=== PATIENT | female | born 1990 | race Caucasian/White ===

== ENCOUNTER 2020-02-16 11:44 | Emergency (ER) | payer OTHER ==
[~2020-02-16] VITALS: Ht 175.3 cm; Wt 63.5 kg
[2020-02-16 11:51] VITALS: BP 106/50
--- NOTE | 2020-02-16 11:55 | NUR ---
PATIENT AMBULATED TO ER BED 03
--- NOTE | 2020-02-16 12:01 | NUR ---
29 y/o female A&OX4 c/o vomiting X 1day with pelvic cramping X2days 9/10 intermittitent. Denies vaginal bleeding. Pt states she was prescribed zofran for first trimester which helped but now no relief. States pt vomited yellow bile with some blood and was told to go to ER for further evaluation. Denies PMH, RX NKA
--- NOTE | 2020-02-16 12:31 | NUR ---
Pt instructed for UA specimen collection, refusing to drink water due to N/V.
--- NOTE | 2020-02-16 12:38 | NUR ---
Dr. Barton at bedside for U/S.
[2020-02-16] MEDS ORDERED: ONDANSETRON 4 MG/2 ML VIAL IVP ONE (12:50)
[2020-02-16] MEDS ORDERED: NACL 0.9% 1,000 ML IV SCH (12:50)
--- NOTE | 2020-02-16 13:00 | NUR ---
20G IV placed to left AC, blood drawn at this time and given to phleb
[2020-02-16 13:31] LABS: ANION GAP 12.5 (8-16); CARBON DIOXIDE 24.8 mmol/L (21-32); CREATININE 0.5 mg/dL (0.6-1.3); HEMATOCRIT 30.9 % (36-48); HEMOGLOBIN 10.7 g/dL (12.0-16.0); MEAN CORPUSCULAR HEMOGLOBIN 33 pg (27-31); MEAN CORPUSCULAR HGB CONC 35 g/dL (33-37); MEAN CORPUSCULAR VOLUME 94.8 fL (80-94); POTASSIUM 3.3 mmol/L (3.5-5.1); RED BLOOD CELL COUNT(AUTO) 3.26 MIL/uL (4.20-5.40); RED CELL DISTRIBUTION WIDTH 13.4 % (11.6-13.7); TOTAL BILIRUBIN 0.3 mg/dL (0.0-1.0); WHITE BLOOD COUNT (AUTO) 6.6 K/uL (4.8-10.8)
[2020-02-16 13:32] LABS: ALBUMIN 3.3 g/dL (3.4-5.0); BASOPHILS % (AUTO) 0.4 % (0.0-2.0); EOSINOPHILS % (AUTO) 0.6 % (0.0-4.0); LYMPHOCYTES # (AUTO) 0.7 K/uL (2.5-16.5); LYMPHOCYTES % (AUTO) 10.3 % (20.5-51.1); MONOCYTES # (AUTO) 0.6 K/uL (0.8-1.0); MONOCYTES % (AUTO) 8.9 % (1.7-9.3); NEUTROPHILS # (AUTO) 5.3 K/uL (1.8-7.7); NEUTROPHILS % (AUTO) 79.8 % (42.2-75.2); PLATELET COUNT (AUTO) 222 K/uL (140-450)
[2020-02-16 14:00] LABS: APPEARANCE,URINE CLEAR (CLEAR); COLOR,URINE YELLOW (YELLOW); UGLUCOSE NEGATIVE (NEGATIVE)
[2020-02-16 14:01] LABS: BILIRUBIN,URINE NEGATIVE (NEGATIVE); BLOOD, URINE NEGATIVE (NEGATIVE); LEUKOCYTE ESTERASE ,URINE NEGATIVE (NEGATIVE); NITRITE, URINE NEGATIVE (NEGATIVE)
--- NOTE | 2020-02-16 14:35 | NUR ---
Pt states decrease in pain and nausea at this time. Positioned for comfort. VSS
[2020-02-16 15:08] VITALS: BP 106/50
--- NOTE | 2020-02-16 15:09 | NUR ---
Patient discharged with v/s stable. Written and verbal after care instructions given and explained. Patient alert, oriented and verbalized understanding of instructions. Ambulatory with steady gait. All questions addressed prior to discharge. ID band removed. Patient advised to follow up with PMD. Rx of Mylanta 200mg and Zofran 4mg given. Patient educated on indication of medication including possible reaction and side effects. Opportunity to ask questions provided and answered.
== END 2020-02-16 15:09 | disposition home or self-care (01) ==
LOC: MED 11:44
DX: O26.892 Other specified pregnancy related conditions, second trimester (principal); Z3A.18 18 weeks gestation of pregnancy
CPT/HCPCS: 36415; 76805; 80053; 81003; 83690; 85025; 96361; 96374; 99284; J2405; J7030

== ENCOUNTER 2021-05-27 20:12 | Emergency (ER) | payer OTHER ==
[~2021-05-27] VITALS: Ht 175.3 cm; Wt 58.6 kg
--- NOTE | 2021-05-27 20:53 | NUR ---
William thompson in [facility] - 05/27/21 at 2055 by DAVID PT TAKEN TO BED 11
[2021-05-27 20:59] VITALS: BP 121/76
--- NOTE | 2021-05-27 21:08 | NUR ---
PT TAKEN TO BED 12
--- NOTE | 2021-05-27 21:28 | NUR ---
30 Y/O FEMALE, C/O RIGHT SIDED HEAD PAIN AND NAUSEA. PATIENT PRESENTS TO ED WITH INTERMITTENT NAUSEA, PERIODIC R VISION DISTORTION, PAIN, AND DIZZINESS SINCE YESTERDAY. PT STATES WHILE AT A BASEBALL GAME THE WIND LIFTED A STEEL COVERING AND HIT THE PT IN THE HEAD. PERRLA, -KO, -VOMIT, - DEFORMITIES, + SWELLING AND REDNESS, -NECK/BACK PAIN. DENIES V/D; SKIN IS PINK/WARM/DRY; AAOX4 WITH EVEN AND STEADY GAIT; LUNGS CLEAR BL; HR EVEN AND REGULAR; PT DENIES ANY FEVER, CP, SOB, OR COUGH AT THIS TIME; PATIENT STATES PAIN OF 8/10 AT THIS TIME; VSS; PATIENT POSITIONED FOR COMFORT; HOB ELEVATED; BEDRAILS UP X1; BED DOWN. ER MD MADE AWARE OF PT STATUS. DENIES HX NKDA
--- NOTE | 2021-05-27 21:42 | NUR ---
ER MD AT BEDSIDE EXAMINING PT
[2021-05-27 22:28] VITALS: BP 121/76
--- NOTE | 2021-05-27 22:28 | NUR ---
Patient discharged with v/s stable. Written and verbal after care instructions given and explained. Patient verbalized understanding. Ambulatory with steady gait. All questions addressed prior to discharge. Advised to follow up with PMD. VSS, A/OX4, UNLABORED BREATHING, AMBULATORY, AND CALM DEMEANOR.
== END 2021-05-27 22:28 | disposition home or self-care (01) ==
LOC: MED 20:12
DX: S09.90XA Unspecified injury of head, initial encounter (principal); W22.8XXA Striking against or struck by other objects, initial encounter; Y92.320 Baseball field as the place of occurrence of the external cause; Y93.89 Activity, other specified; Y99.8 Other external cause status
CPT/HCPCS: 99281